=== PATIENT | female | born 1980 | race Caucasian/White ===

== ENCOUNTER 2017-12-23 08:32 | Day surgery (SDC) | payer MEDICAID, OTHER ==
[~2017-12-23 08:32] MED LIST: Lactated Ringers 1,000 ML IV SCH
[2017-12-23] MEDS ORDERED: Propofol 200 MG/20 ML SDV ONE (09:50)
[2017-12-23] MEDS ORDERED: Midazolam 1 MG/ML 2 ML SDV ONE (09:51)
[2017-12-23] MEDS ORDERED: fentaNYL 100 MCG/2 ML SDV ONE (09:51)
[2017-12-23] MEDS ORDERED: Lactated Ringers 1,000 ML ONE (10:30)
--- NOTE | 2017-12-23 12:22 | OR ---
DATE OF PROCEDURE: 12/23/2017 PREOPERATIVE DIAGNOSIS: Hematochezia. POSTOPERATIVE DIAGNOSES: 1. Hematochezia, etiology unknown. 2. Unremarkable colonoscopy. PROCEDURE: Colonoscopy to the cecum. ANESTHESIA: IV anesthesia with monitored anesthesia care. INDICATION: This 37-year-old white female is referred for a colonoscopy because of hematochezia. This was bright red. I counseled her for the procedure including risks and alternatives, and she gave her informed consent to proceed. DESCRIPTION OF PROCEDURE: The patient was placed in the left lateral decubitus position. IV anesthesia was administered by the Anesthesia Service. Time-out was held. A rectal exam was performed, which was unremarkable. The flexible video Olympus colonoscope was introduced through her anus, up her rectum, and out her colon, all the way to the cecum. Once the cecum was reached, the scope was slowly withdrawn, examining the mucosa throughout. No mucosal abnormalities were noted. The scope was retroflexed in the rectum with the distal rectum appearing unremarkable. The scope was straightened and removed. She tolerated the procedure well. Carter Galicia MD /[id number]
== END 2017-12-23 11:40 | disposition home or self-care (01) ==
LOC: JP.SDS 08:32
PROVIDERS: ATTEND Surgery
DX: K92.1 Melena (principal)
CPT/HCPCS: 45378; J2250; J2704; J3010; J7120